=== PATIENT | male | born 1970 | race Caucasian/White ===

== ENCOUNTER → 2021-08-01 09:58 | Outpatient (CLI) | payer OTHER, SELFPAY | PROVIDERS: Visit Provider Ophthalmology | DX: Z01.812 Encounter for preprocedural laboratory examination (principal); Z11.52 Encounter for screening for COVID-19 | CPT/HCPCS: C9803; U0003; U0005 ==

== ENCOUNTER 2021-08-02 09:06 | Day surgery (SDC) | payer OTHER, SELFPAY ==
[2021-07-29 14:09] VITALS: BMI 28.5
[2021-08-02 09:30] VITALS: BP 162/96; PULSE 82; RESP 18; TEMP 37.1; O2SAT 96
[2021-08-02 10:03] VITALS: BP 167/97; PULSE 80; RESP 18; TEMP 36.1; O2SAT 95
== END 2021-08-02 10:10 | disposition home or self-care (01) ==
LOC: OUTP 09:09
PROVIDERS: Visit Provider Ophthalmology
PROC: (CPT 66821; principal; 2021-08-02 10:00)
DX: H26.491 Other secondary cataract, right eye (principal); Z96.1 Presence of intraocular lens
CPT/HCPCS: 66821